=== PATIENT | female | born 1960 | race Caucasian/White ===

== ENCOUNTER → 2016-12-03 | Outpatient (CLI) | payer OTHER ==
[~2016-12-03] MED LIST: ASPI1TAB6 PO; CELE20TA PO; CLAR10CA3 PO; PRAV10TA PO
--- NOTE | 2016-12-03 10:45 | REP ---
LEFT BREAST ULTRASOUND: 12/03/2016. Clinical history: Palpable lump upper outer quadrant left breast for about 4 years. The patient states it is no larger over that time. Sonographic evaluation of the upper out quadrant left breast is compared to the diagnostic mammogram done this date. The upper outer quadrant shows a linear band of fibrotic tissue in the region of the reported palpable finding. This is about 1 o'clock. There is no mass, cyst, or architectural distortion. Further superiorly is a 6.5 x 6.2 x 3.4 mm lymph node in the upper outer quadrant of 2 o'clock position. Impression: 1. Curvilinear dense echogenic fibrosis area in the region of her palpable finding. No mass or cyst nor any dilated ducts. 2. There is a 6.5 mm lymph node also present at the 2 o'clock position further away. Please see mammogram report this date for final assessment and recommendation. Signed by Evangelista Shafer MD 12/03/2016 01:20 P
--- NOTE | 2016-12-03 10:53 | REP ---
DIAGNOSTIC DIGITAL BILATERAL MAMMOGRAM: 12/03/2016. Comparison: Left breast ultrasound today, screening mammogram 08/21/2015, 08/12/2011. Clinical history: Persistent palpable finding upper outer quadrant left breast for about 4 years, not changed in that time. The breast parenchyma are mostly fatty replaced with scattered fibroglandular elements in a generally symmetric fashion. There is some minor tissue asymmetry in the upper outer quadrant of the left breast. Benign fat replaced axillary nodes are present bilaterally. Palpable marker appears in the upper outer quadrant left breast at about the 1 o'clock position with subjacent minor tissue asymmetry. There is no dominant mass, architectural distortion, clustered microcalcification or skin thickening. Spot magnified CC and MLO views and true MLO view provided for a total of eight images. Some minor tissue asymmetry compresses to normal-appearing parenchyma. The study shows no definite mass or other significant finding. Left breast ultrasound shows some curvilinear dense fibrocystic tissue subjacent to the palpable finding corresponding to the minor mammographic finding. No mass or cyst. In addition, there is a 6.5 mm node in the upper outer quadrant. This corresponds to a lymph nodes seen in the axillary region on mammogram. Impression: 1. BIRADS ACR category 2, benign. Benign findings. No evidence of malignancy. The mammographic and sonographic findings confirm the palpable area is a band of fibrocystic tissue, no mass. 2. Recommend followup mammography in 1 year. This mammogram was interpreted with the aid of an FDA-approved computer-aided detection system. A. Negative x-ray reports should not delay biopsy if a dominant or clinically suspicious mass is present. B. Four to eight percent of cancers are not identified by x-ray. C. Adenosis and dense breasts may obscure an underlying neoplasm. The patient states she has not had a clinical breast exam in over a year. The patient letter being requested is M1. Signed by Evangelista Shafer MD 12/03/2016 01:21 P
== END ==
LOC: M RAD 08:39
PROVIDERS: ATTEND Internal Medicine
DX: D24.2 Benign neoplasm of left breast (principal); R59.9 Enlarged lymph nodes, unspecified
CPT/HCPCS: 76642; G0204

== ENCOUNTER 2017-05-25 06:55 | Day surgery (SDC) | payer OTHER ==
[~2017-05-25] VITALS: Ht 152.4 cm; Wt 79.4 kg
[~2017-05-25 06:55] MED LIST changes: +ASPI1TAB PO; +BIOT50004 PO; +DYMI137S; +NEXI40CA PO; -PRAV10TA PO; +PRAV10TA4 PO; +SING10TA32 PO; +ZYRT10TA2 PO
[2017-05-25] MEDS ORDERED: LR 1,000 ML IV SCH ×3 (07:15→08:45)
[2017-05-25] MEDS ORDERED: fentaNYL 100 MCG/2 ML INJECTION (J3010) As Ordered ONE (07:18)
[2017-05-25] MEDS ORDERED: MIDAZOLAM INJ 2 MG/2 ML VIAL (J2250) As Ordered ONE (07:18)
[2017-05-25] MEDS ORDERED: CIPRODEX OTIC SUSP 7.5ML As Ordered ONE (07:55)
[2017-05-25] MEDS ORDERED: dexameTHASONE 4 MG/ML 1ML VIAL (J1100) As Ordered ONE (08:20)
[2017-05-25] MEDS ORDERED: ONDANSETRON 4MG/2ML VIAL (J2405) As Ordered ONE (08:20)
[2017-05-25] MEDS ORDERED: PROPOFOL 200 MG/20 ML VIAL As Ordered ONE (08:20)
[2017-05-25] MEDS ORDERED: fentaNYL 100 MCG/2 ML INJECTION (J3010) IV PRN (08:45)
[2017-05-25 09:30] VITALS: BP 129/68
--- NOTE | 2017-05-26 09:52 | RO ---
DATE OF OPERATION: 05/25/2017 PREOPERATIVE DIAGNOSIS: Right chronic otitis media with effusion. POSTOPERATIVE DIAGNOSIS: Right chronic otitis media with effusion. PROCEDURE PERFORMED: Right tympanostomy. SURGEON: Irving Rolon MD TOWER DIRECTOR: ANESTHESIA: General. CLINICAL PREAMBLE: This 56-year-old woman who presented to the office with history of right aural fullness. Physical examination revealed dull intact tympanic membrane. Tympanometry showed type B tympanogram. Management options, including right tympanostomy tube, have been discussed. The patient understood and consented to the procedure. Operating room (OR) narration: The patient was identified in preoperative holding and had the right ear marked. She was brought to the operating room in stable condition. In supine position on the operating room table, the patient received general anesthesia, followed by mask ventilation. The patient was turned to the left side to expose the right ear. Ear speculum was inserted, and cerumen was debrided. Under binocular magnification, the right tympanic membrane was visualized and found to be intact and mildly retracted. Myringotomy incision was made over the anterior-inferior quadrant of the tympanic membrane. Minimal effusion was encountered and suctioned clear. A 7 mm straight shank tympanostomy tube was inserted. Ciprodex drops were instilled, and a cotton ball was used to occlude the ear canal. At the end of the procedure, sponge and instrument counts were correct. No complications encountered. ESTIMATED BLOOD LOSS: Was nil. General anesthesia was reversed, and the patient was awakened and taken to the recovery room in stable condition. MARISELA
== END 2017-05-25 09:44 | disposition home or self-care (01) ==
LOC: M SDC 06:55
PROVIDERS: ATTEND Otolaryngology
DX: H65.21 Chronic serous otitis media, right ear (principal); J45.909 Unspecified asthma, uncomplicated; J31.0 Chronic rhinitis; J34.2 Deviated nasal septum; K21.9 Gastro-esophageal reflux disease without esophagitis; F32.9 Major depressive disorder, single episode, unspecified; E78.5 Hyperlipidemia, unspecified; R94.31 Abnormal electrocardiogram [ECG] [EKG]; R06.83 Snoring; Z79.899 Other long term (current) drug therapy; Z79.82 Long term (current) use of aspirin; Z98.51 Tubal ligation status; Z90.710 Acquired absence of both cervix and uterus; Z78.0 Asymptomatic menopausal state
CPT/HCPCS: 69436; J1100; J2250; J2405; J3010

== ENCOUNTER → 2021-05-30 | Outpatient (CLI) | payer OTHER ==
[~2021-05-30] MED LIST changes: -ASPI1TAB PO; +ASPI81TA26 PO; +ISOVUE-370 76% 100ML VIAL As Ordered ONE; +ZYRT10CA5 PO; -ZYRT10TA2 PO
--- NOTE | 2021-05-30 16:44 | REPVR ---
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 Radiation optimization: All CT scans at this facility use at least one of these dose optimization techniques: automated exposure control; mA and/or kV adjustment per patient size (includes targeted exams where dose is matched to clinical indication); or iterative reconstruction. Contrast material: ISOVUE 370; Contrast volume: 75 ml; Contrast route: INTRAVENOUS (IV); COMPARISON: No relevant prior studies available. FINDINGS: Nasopharynx: Unremarkable. 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 By CT, no discrete mass is detected in this location. Hypopharynx: Unremarkable. Larynx: Unremarkable. Normal epiglottis. Retropharyngeal space: Unremarkable. Submandibular/Parotid glands: Normal. Glands are normal in size. Thyroid: There are two hypodense lesions in the left thyroid lobe, the larger measuring up to 10 mm in greatest axial dimension. These are nonspecific. Lymph nodes: No abnormally enlarged cervical lymph nodes are seen. Trachea: Visualized trachea is unremarkable. Lungs: There is a 3 mm nodule in the posterior left lung apex which is nonspecific. Correlate with previous and/or followup imaging in accordance with the patient's risk category, per Fleischner criteria. Bones/joints: No destructive osseous lesions are seen. IMPRESSION: 1. Small hypodense lesions in the left thyroid lobe, as above, nonspecific. 2. No soft tissue mass identified in the aero digestive tract. 3. No lymphadenopathy is seen. 4. There is a 3 mm nodule in the posterior left lung apex which is nonspecific. Correlate with previous and/or followup imaging in accordance with the patient's risk category, per Fleischner criteria. COMMENTS: Consistent with the [employer]'s Incidental Findings Committee white paper (J Am Laura Radiol 2015): In patients aged 35 years and older with an incidental thyroid nodule equal to or greater than 1.[address], MRI or extrathyroidal US, further evaluation with dedicated thyroid US is recommended for patients with normal life expectancy and without comorbidities. For smaller nodules without suspicious features, no further evaluation or follow up is recommended. FLEISCHNER SOCIETY 2017 GUIDELINES FOR MANAGEMENT OF INCIDENTAL PULMONARY NODULES: Subsolid nodules >6 mm: Single part solid nodule: CT at 3-6 months to confirm persistence. If unchanged and solid component remains <6 mm, annual CT should be performed for 5 years. In practice, part-solid nodules cannot be defined as such until >6 mm, and nodules <6 mm do not usually require follow-up. Persistent part-solid nodules with solid components >6 mm should be considered highly suspicious. Jelena H, Pilar DP, Constantineo ESTEFANY, et al. Guidelines for Management of Incidental Pulmonary Nodules Detected on CT images: From the Fleischner Society 2017. Radiology, April 2017;284(1):228-243. http://pubs.rsna.org/doi/pdf/10.1148/[email or web address] Electronically signed by: Zahra Guajardo On 05/30/2021 16:44:23 PM
== END ==
LOC: M RAD 15:29
PROVIDERS: ATTEND Otolaryngology
DX: D37.09 Neoplasm of uncertain behavior of other specified sites of the oral cavity (principal); E07.9 Disorder of thyroid, unspecified; R91.1 Solitary pulmonary nodule

== ENCOUNTER → 2021-07-23 | Outpatient (CLI) | payer OTHER ==
[~2021-07-23] MED LIST changes: -ISOVUE-370 76% 100ML VIAL As Ordered ONE
--- NOTE | 2021-07-23 15:57 | REP ---
INDICATION: D38.1 - HAS US AFTER COMPARISON: None. TECHNIQUE: Standard helical technique after the intravenous administration of 100 cc Isovue 370. FINDINGS: There is no mediastinal or hilar adenopathy. There are no pleural or pericardial effusions. The imaged upper abdomen is within normal limits. The imaged osseous structures are within limits. Evaluation of the lung saucedo shows no abnormal nodules, masses, or opacities. IMPRESSION: CT findings are within normal limits. <Electronically signed by Ish Ta > 07/23/21 [id number]
--- NOTE | 2021-07-23 16:32 | REP ---
INDICATION: E04.2 - HAS CT FIRST. COMPARISON: None. TECHNIQUE: Real-time sonographic evaluation of the thyroid with Doppler FINDINGS: The right lobe of the thyroid gland measures 3.9 x 1.2 x 1.6 cm and the left lobe measures 4.4 x 1.8 x 1.4 cm. The isthmus measures 2 mm. In the right lobe of the thyroid gland inferior pole there is a 7.7 x 4.9 x 5.5 mm sized complex nodule. In the superior pole there is a 3 mm size complex nodule. The left lobe of the thyroid gland superior pole there is a 1.9 x 1.1 x 1.3 cm sized complex nodule. In the inferior pole there is a 5 mm size complex nodule. Sized IMPRESSION: The dominant finding is a complex nodule seen in the left lobe upper pole as described above. Follow-up is recommended. <Electronically signed by Ish Ta > 07/23/21 [id number]
== END ==
LOC: M RAD 15:23
PROVIDERS: ATTEND Otolaryngology
DX: D38.1 Neoplasm of uncertain behavior of trachea, bronchus and lung (principal); E04.2 Nontoxic multinodular goiter

== ENCOUNTER → 2021-08-19 | Outpatient (CLI) | payer OTHER ==
[~2021-08-19] MED LIST changes: +CALC500C16 PO; +COLA100C5 PO; +LIDOCAINE 1% MDV 20ML VIAL As Ordered ONE; +VITA-243 PO; +VITAD400CA PO; +ZINC1TAB2 PO
[2021-08-19 11:01] VITALS: BP 157/86
--- NOTE | 2021-08-20 17:22 | REP ---
INDICATION: LT THYROID NODULE. COMPARISON: None. TECHNIQUE: The procedure was performed by OLIVIA Degroot, under the direct supervision of Dr. Soto. The risks and benefits of the procedure were explained to the patient and an informed consent was obtained both verbally and written. Directly prior to the start of the procedure a formal time-out was completed in the procedure room. The left thyroid nodule was localized using ultrasound guidance. The skin was prepped and draped in a sterile fashion. Nine mL of buffered lidocaine was used as a local anesthetic. Using ultrasound guidance 8 fine needle aspirations were obtained using 25 gauge needles. The patient tolerated the procedure well and there were no immediate complications. After the appropriate amount of monitored convalescence the patient was discharged from the department. FINDINGS: Eight fine-needle aspiration passes were made using 25 gauge needles. For these were placed in CytoLyt and sent to the lab for further evaluation. Four these were placed in Afirma testing vial. IMPRESSION: Successful ultrasound-guided left thyroid nodule fine needle aspiration. <Electronically signed by Olivia Ramirez > 08/19/21 [id number] <Electronically signed by Shamar Soto > 08/20/21 [id number]
== END ==
LOC: M IRPRO 09:19
PROVIDERS: ATTEND Otolaryngology
DX: E04.2 Nontoxic multinodular goiter (principal)

== ENCOUNTER → 2022-01-12 | Outpatient (CLI) | payer OTHER ==
[~2022-01-12] MED LIST changes: -LIDOCAINE 1% MDV 20ML VIAL As Ordered ONE
== END ==
LOC: M RAD 12:54
PROVIDERS: ATTEND Otolaryngology
DX: E04.2 Nontoxic multinodular goiter (principal)

== ENCOUNTER → 2022-07-16 | Outpatient (CLI) | payer OTHER | LOC: M RAD 15:12 | PROVIDERS: ATTEND Otolaryngology | DX: E04.2 Nontoxic multinodular goiter (principal) ==

== ENCOUNTER → 2023-07-22 | Outpatient (CLI) | payer OTHER ==
[~2023-07-22] MED LIST changes: +MONT-5 PO; -SING10TA32 PO
== END ==
LOC: M WHC 15:20
PROVIDERS: ATTEND Otolaryngology
DX: E04.2 Nontoxic multinodular goiter (principal)

== ENCOUNTER → 2024-01-31 | Outpatient (CLI) | payer OTHER ==
[~2024-01-31] MED LIST changes: -BIOT50004 PO; +BIOT5CAP8 PO
== END ==
LOC: M WUC 10:04
PROVIDERS: ATTEND Internal Medicine
DX: M25.551 Pain in right hip (principal); M16.11 Unilateral primary osteoarthritis, right hip; M47.817 Spondylosis without myelopathy or radiculopathy, lumbosacral region

== ENCOUNTER → 2024-07-24 | Outpatient (CLI) | payer OTHER | LOC: M RAD 14:34 | PROVIDERS: ATTEND Otolaryngology | DX: E04.2 Nontoxic multinodular goiter (principal) ==

== ENCOUNTER → 2024-11-28 | Outpatient (CLI) | payer OTHER | LOC: M RAD 11:59 | PROVIDERS: ATTEND Otolaryngology | DX: E04.2 Nontoxic multinodular goiter (principal) ==

== ENCOUNTER → 2025-01-23 | Outpatient (CLI) | payer OTHER | LOC: M WUC 10:05 | PROVIDERS: ATTEND Physician Assistant | DX: M25.511 Pain in right shoulder (principal); M75.31 Calcific tendinitis of right shoulder ==

== ENCOUNTER → 2025-06-06 | Outpatient (CLI) | payer OTHER ==
[~2025-06-06] MED LIST changes: +PRAV10TA PO; -PRAV10TA4 PO
== END ==
LOC: M RAD 09:13
PROVIDERS: ATTEND Otolaryngology
DX: E04.2 Nontoxic multinodular goiter (principal)

== ENCOUNTER → 2025-07-25 | Outpatient (CLI) | payer MEDICARE, OTHER ==
[~2025-07-25] MED LIST changes: +BIOT1CAP2 PO; +CALC-212 PO; +DYMI137S NARES; +ROSU5TAB49 PO
[2025-07-25 14:45] VITALS: BP 171/83; TEMP 96.7; O2SAT 98
[2025-07-25] MEDS: LIDOCAINE 1% MDV 20 ML VIAL SC ONE (15:40)
== END ==
LOC: M IRPRO 14:38
PROVIDERS: ATTEND Otolaryngology
DX: E04.2 Nontoxic multinodular goiter (principal)